=== PATIENT | female | born 1970 | race Caucasian/White ===

== ENCOUNTER 2023-01-05 02:44 | Emergency (ER) | payer BC, OTHER ==
[~2023-01-05] VITALS: Ht 165.1 cm; Wt 73.0 kg
[~2023-01-05 02:44] MED LIST: LACT10SO7 PO
[2023-01-05 02:50] VITALS: O2SAT 99
[2023-01-05] MEDS ORDERED: ACETAMINOPHEN 325MG TABLET PO ONE (04:00)
[2023-01-05 04:23] LABS: BASOPHILS % 0.2 % (0.0-2.0); EOSINOPHILS % 0.6 % (0.0-5.0); HEMATOCRIT. 42.3 % (36.0-48.0); LYMPHOCYTES % 21.9 % (20.0-50.0); MEAN CORPUSCULAR HEMOGLOBIN 32.3 pg (28.0-32.0); MEAN CORPUSCULAR VOLUME 97.9 fL (81.0-99.0); MEAN PLATELET VOLUME 8.8 fl (7.4-10.4); MONOCYTES % 7.2 % (2.0-8.0); NEUTROPHILS % 70.1 % (40.0-76.0); PLATELET 270 x1000/uL (130-400); RED BLOOD CELL COUNT 4.32 mill/uL (4.2-5.4); RED CELL DISTRIBUTION WIDTH 13.1 % (11.6-14.6)
[2023-01-05 04:34] LABS: CHLORIDE 108 mEq/L (98-107)
[2023-01-05 04:45] LABS: CLARITY URINE CLEAR (CLEAR); COLOR URINE YELLOW (YELLOW); KETONES URINE 1+ (NEGATIVE); LEUKOCYTE ESTERASE URINE 1+ (NEGATIVE); NITRITE URINE NEGATIVE (NEGATIVE); OCCULT BLOOD URINE NEGATIVE (NEGATIVE); PH URINE 7.5 (4.5-8.0); PROTEIN URINE NEGATIVE (NEGATIVE); SPECIFIC GRAVITY URINE 1.011 (1.005-1.030)
[2023-01-05] MEDS ORDERED: ASPIRIN 325MG EC TABLET PO ONE (05:30)
[2023-01-05] MEDS ORDERED: LEVOFLOXACIN 250MG PREMIX 50 ML IV ONE (06:30)
[2023-01-05] MEDS ORDERED: LEVOFLOXACIN 250MG PREMIX 50 ML IV NR (06:45)
[2023-01-05] MEDS ORDERED: ACETAMINOPHEN 325MG TABLET PO PRN ×2 (07:45)
[2023-01-05] MEDS ORDERED: GUAIFENESIN 200MG/10ML SUGAR FREE UDC PO PRN (07:45)
[2023-01-05] MEDS ORDERED: DOCUSATE SODIUM 100MG CAPSULE PO PRN (07:45)
[2023-01-05] MEDS ORDERED: MAGNESIUM/ALUMINUM HYDROXIDE/SIMETHICONE 30ML UDC PO PRN (07:45)
[2023-01-05] MEDS ORDERED: KETOROLAC 15MG/ML VIAL IV PRN (07:45)
[2023-01-05] MEDS ORDERED: IPRATROPIUM/ALBUTEROL 0.5-3(2.5)MG/3ML NEB HHN PRN (07:45)
[2023-01-05] MEDS ORDERED: CLONIDINE 0.1MG TABLET PO PRN (07:45)
[2023-01-05] MEDS ORDERED: ONDANSETRON HCL 4MG/2ML INJ IV PRN (07:45)
[2023-01-05] MEDS ORDERED: SODIUM CHLORIDE 0.9% 1,000 ML IV SCH (07:45)
[2023-01-05] MEDS ORDERED: METRONIDAZOLE 500 MG PREMIX 100 ML IV SCH (08:30)
[2023-01-05] MEDS ORDERED: PANTOPRAZOLE SODIUM 40 MG/VIAL IV SCH (09:00)
[2023-01-05 10:35] LABS: T4 FREE 1.03 ng/dL (0.76-1.46)
[2023-01-05 10:41] LABS: PROTHROMBIN TIME 10.8 sec (9.6-11.0)
[2023-01-05 12:00] VITALS: TEMP 97.8
[2023-01-05 15:47] LABS: CREATINE KINASE MB FRACTION 1.6 ng/mL (0.5-3.6)
[2023-01-05 16:26] VITALS: BP 162/78; PULSE 80; RESP 14
[2023-01-06] MEDS ORDERED: LEVOFLOXACIN 750MG PREMIX 150 ML IV SCH (06:00)
== END 2023-01-05 20:32 | disposition left against medical advice (07) ==
LOC: ER 02:44 → EDBEDREQ 06:17 → MICUSO 06:49 → UNDOADMIN 06:49 → ER 20:07
DX: R10.13 Epigastric pain (principal); R77.8 Other specified abnormalities of plasma proteins; Z88.0 Allergy status to penicillin
CPT/HCPCS: 99285; 78227; 74176; 93970; 76705; 71045; 80061; 80053; 81003; 82150; 82550; 82553; 83036; 84439; 83690; 84443; 85025; 85610; 85730; 87086; 84484; 93005; 36415; A9537; J1956; J3490; C9113; J7030